=== PATIENT | male | born 2000 | race African-American/Black ===

== ENCOUNTER 2021-05-17 14:37 | Emergency (ER) | payer SELFPAY ==
[~2021-05-17] VITALS: Ht 190.5 cm; Wt 67.0 kg
--- NOTE | 2021-05-17 14:58 | ED Integumentary General ---
General Chief Complaint: Skin/Wound Problems Stated Complaint: RT ARMPIT CYST History of Present Illness Date Seen by Provider: May 17, 2021 Time Seen by Provider: 14:42 Initial Comments 20-year-old male coming in due to a wound on his right axilla that is getting worse over the past 3 weeks. Significantly worse today and now more painful and red. No fever. This occurred as a child and it popped on its own. He did get a little bit of purulent drainage from it with a what he believes was an ingrown hair. Is otherwise denying any other acute complaints. Allergies and Home Medications Allergies Coded Allergies: No Known Drug Allergies (Unverified , 05/17/21) Patient Home Medication List Home Medication List Reviewed: Yes Cephalexin (Cephalexin) 500 Mg Tablet, 500 MG PO QID Prescribed by: AKILAH MEADOWS on 05/17/21 152 Doxycycline Hyclate (Doxycycline Hyclate) 100 Mg Tablet, 100 MG PO BID Prescribed by: AKILAH MEADOWS on 05/17/21 152 Review of Systems Review of Systems Constitutional: No fever EENTM: no symptoms reported Respiratory: no symptoms reported Cardiovascular: no symptoms reported Gastrointestinal: No abdominal pain Genitourinary: no symptoms reported Musculoskeletal: no symptoms reported Skin: rash Psychiatric/Neurological: No Symptoms Reported Endocrine: No Symptoms Reported Hematologic/Lymphatic: No Symptoms Reported All Other Systems Reviewed Negative Unless Noted: Yes Past Aveextf-Lsugtw-[place] Hx Patient Social History Tobacco Use?: Yes Tobacco type used: Cigarettes Past Medical History Surgeries: No Physical Exam Vital Signs Vital Signs - First Documented 05/17/21 14:42 Temp 36.0 Pulse 71 Resp 16 B/P (MAP) 119/75 (90) Pulse Ox 16 O2 Delivery Room Air Capillary Refill : General Appearance: WD/WN, no apparent distress HEENT: PERRL/EOMI, normal ENT inspection, pharynx normal Neck: non-tender, full range of motion, supple, normal inspection Cardiovascular: regular rate, rhythm, no edema, no murmur Respiratory: chest non-tender, lungs clear, normal breath sounds, no respiratory distress, no accessory muscle use Gastrointestinal: normal bowel sounds, non tender, soft; No guarding Back: normal inspection Extremities: normal range of motion, non-tender, normal inspection, no pedal edema, no calf tenderness, normal capillary refill Neurologic/Psychiatric: no motor/sensory deficits, alert, normal mood/affect Skin: normal color, warm/dry, other (Fluctuant area to the right axilla with some induration as well and overlying cellulitis, no pulse felt in the fluctuant area) Lymphatic: no adenopathy Procedures/Interventions I&D : Site: right axilla Blade Size: 11 I & D Procedure: betadine prep Progress Single stab incision to the right axilla after confirmed abscess by ultrasound. Doppler used with no blood vessel around the abscess. Moderate amount of purulent drainage with no bleeding. Lidocaine with epinephrine 1% was used for anesthesia prior to the procedure. He tolerated it well. Progress/Results/Core Measures Results/Orders My Orders Orders - AKILAH MEADOWS MD Lidocaine/Epi 2% 1:100,000 (Xylocaine/Ep (05/17/21 15:00) Medications Given in ED Current Medications Medications Dose Ordered Sig/Erica Route Start Time Stop Time Status Last Admin Dose Admin Lidocaine/ Epinephrine 20 ml ONCE ONCE INJ 05/17/21 15:00 05/17/21 15:01 DC 05/17/21 15:18 20 ML Vital Signs/I&O 05/17/21 05/17/21 14:42 15:25 Temp 36.0 36.0 Pulse 71 71 Resp 16 16 B/P (MAP) 119/75 (90) 119/75 Pulse Ox 16 16 O2 Delivery Room Air Room Air Progress Progress Note : Progress Note 20-year-old male with above history coming in due to an abscess in his right axilla with overlying mild cellulitis. He is not systemically ill. ABCs were intact and vitals were stable on presentation. Overall he is very well- appearing. I did a [id number] ultrasound on the wound showing the abscess. Doppler flow negative for any blood vessels near the infection. Numbed it and did a single stab incision with a moderate amount of purulent drainage. There is still a fair amount of induration and overlying erythema concerning for infection. We will send a prescription to his pharmacy. He was then discharged home in stable condition with strict return precautions Departure Impression Primary Impression: Cellulitis and abscess of upper extremity Disposition: HOME, SELF-CARE Condition: Stable Departure-Patient Inst. Decision time for Depature: 15:22 Referrals: NO,LOCAL PHYSICIAN (PCP/Family) Primary Care Physician Patient Instructions: Abscess Incision and Drainage Add. Discharge Instructions: You are seen in the emergency department for an abscess in your armpit. We did drain this. Keep the area clean and do not use deodorant for the next week in the area. Take antibiotics as well. If you are having pain then take 600 mg of ibuprofen every 6 hours. If you have any fever or worsening of condition within the next day then please come back to the ER. All discharge instructions reviewed with patient and/or family. Voiced understanding. Scripts Cephalexin (Cephalexin) 500 Mg Tablet 500 MG PO QID for 7 Days, #28 TAB Prov: AKILAH MEADOWS MD 05/17/21 Doxycycline Hyclate (Doxycycline Hyclate) 100 Mg Tablet 100 MG PO BID for 7 Days, #14 TAB 0 Refills Prov: AKILAH MEADOWS MD 05/17/21 Work/School Note: Work Release Form Date Seen in the Emergency Department: May 17, 2021 Return to Work: May 18, 2021 Restrictions: No Restrictions AKILAH MEADOWS MD May 17, 2021 14:58
[2021-05-17] MEDS ORDERED: LIDOCAINE/EPI 2% 1:100,00 (XYLOCAINE) 20 ML VIAL INJ ONE (15:00)
[2021-05-17] MEDS ORDERED: CEPH500T PO (15:22)
[2021-05-17] MEDS ORDERED: DOXY100T2 PO (15:22)
[2021-05-17 15:25] VITALS: BP 119/75
== END 2021-05-17 15:24 | disposition home or self-care (01) ==
LOC: ER FS 14:39
DX: L03.111 Cellulitis of right axilla (principal); L02.411 Cutaneous abscess of right axilla; Z72.0 Tobacco use
CPT/HCPCS: 10060

== ENCOUNTER 2021-06-23 11:27 | Emergency (ER) | payer SELFPAY ==
[~2021-06-23] VITALS: Ht 190.5 cm; Wt 66.7 kg
[~2021-06-23 11:27] MED LIST: CEPH500T PO; DOXY100T2 PO
--- NOTE | 2021-06-23 11:37 | ED Integumentary General ---
General Chief Complaint: Skin/Wound Problems Stated Complaint: RT ARMPIT CYST History of Present Illness Date Seen by Provider: Jun 23, 2021 Time Seen by Provider: 11:32 Initial Comments 21-year-old male presents with an abscess/cyst in his right armpit. Patient reports that he was seen here about a month ago where they lanced it. Patient reports that it is gotten worse especially the last week and now he has more than one area of drainage and cyst. Patient denies any fevers or chills. Allergies and Home Medications Allergies Coded Allergies: No Known Drug Allergies (Unverified , 05/17/21) Patient Home Medication List Home Medication List Reviewed: Yes Cephalexin (Cephalexin) 500 Mg Tablet, 500 MG PO QID Prescribed by: AKILAH MEADOWS on 05/17/21 1522 Clindamycin Phosphate (Clindacin Etz) 1 Each Med..swab, 1 EACH TP BID Prescribed by: BALBIR CABA on 06/23/21 1145 Doxycycline Hyclate (Doxycycline Hyclate) 100 Mg Tablet, 100 MG PO BID Prescribed by: AKILAH MEADOWS on 05/17/21 1522 Doxycycline Hyclate (Doxycycline Hyclate) 100 Mg Tablet, 100 MG PO BID Prescribed by: BALBIR CABA on 06/23/21 1145 Review of Systems Review of Systems Constitutional: no symptoms reported EENTM: no symptoms reported Respiratory: no symptoms reported Cardiovascular: no symptoms reported Genitourinary: no symptoms reported Musculoskeletal: no symptoms reported Skin: see HPI Psychiatric/Neurological: No Symptoms Reported Endocrine: No Symptoms Reported Past Jqwrbwj-Oyhqmk-Ucwiwb Hx Past Medical History Surgeries: No Physical Exam Vital Signs Capillary Refill : General Appearance: no apparent distress Cardiovascular: normal peripheral pulses, regular rate, rhythm Respiratory: lungs clear, normal breath sounds Extremities: non-tender, no pedal edema Neurologic/Psychiatric: alert, normal mood/affect, oriented x 3 Skin Problem Location: upper extremities (Right axilla) Skin Problem Character: abscess (Consistent with hidradenitis) Progress/Results/Core Measures Progress Progress Note : Progress Note Patient with large abscess and multiple other small abscess drainage this consistent with hidradenitis. I will prescribe him doxycycline and clindamycin topical. I recommend he follow-up with the general surgery for further management. Patient can use Tylenol ibuprofen and topical lidocaine for pain. Patient stable and discharged Departure Impression Primary Impression: Hidradenitis suppurativa of right axilla Disposition: 01 HOME, SELF-CARE Condition: Stable Departure-Patient Inst. Referrals: WILL MAXWELL,LOCAL PHYSICIAN (PCP) Primary Care Physician Patient Instructions: Hidradenitis Suppurativa Add. Discharge Instructions: Follow-up with general surgery for further outpatient management You may use 4% topical lidocaine with menthol cream or gel as needed for pain in addition to Tylenol and ibuprofen All discharge instructions reviewed with patient and/or family. Voiced understanding. Scripts Clindamycin Phosphate (Clindacin Etz) 1 Each Med..swab 1 EACH TP BID, #60 EA Prov: BALBIR CABA DO 06/23/21 Doxycycline Hyclate (Doxycycline Hyclate) 100 Mg Tablet 100 MG PO BID, #20 TAB 0 Refills Prov: BALBIR CABA DO 06/23/21 BALBIR CABA DO Jun 23, 2021 11:37
[2021-06-23] MEDS ORDERED: DOXY100T2 PO (11:45)
[2021-06-23] MEDS ORDERED: [UNRECOGNIZED DRUG - CODE] TP (11:45)
[2021-06-23 11:51] VITALS: BP 120/84
== END 2021-06-23 11:54 | disposition home or self-care (01) ==
LOC: EDUNIT# 11:27 → ER FS 11:29
DX: L73.2 Hidradenitis suppurativa (principal)
CPT/HCPCS: 99281

== ENCOUNTER 2022-08-13 15:17 | Emergency (ER) | payer SELFPAY ==
[~2022-08-13] VITALS: Ht 190 cm; Wt 72.0 kg
[~2022-08-13 15:17] MED LIST changes: +[UNRECOGNIZED DRUG - CODE] TP
[2022-08-13] MEDS ORDERED: AMOX500C2 PO (15:51)
--- NOTE | 2022-08-13 15:51 | ED EENT ---
History of Present Illness General Chief Complaint: Dental Problems/Pain Stated Complaint: DENTAL PAIN Nursing Triage Note: TO TRIAGE WITH COMPLAINTS OF LEFT SIDED DENTAL PAIN. WAS SCHEDULED TO HAVE TOOTH REMOVED TODAY BUT WENT TO THE WRONG PLACE THEN WAS LATE. History of Present Illness Date Seen by Provider: Aug 13, 2022 Time Seen by Provider: 15:40 Initial Comments 22 year old male presents for left lower molar dental pain. He was scheduled for evaluation at [facility] dental today but was late, so will need to reschedule. Took Ibuprofen [employer]. Does not have family dentist. Location: dental Prearrival Treatment: over the counter meds Associated Symptoms: denies symptoms Allergies and Home Medications Allergies Coded Allergies: No Known Drug Allergies (Unverified , 05/17/21) Patient Home Medication List Home Medication List Reviewed: Yes Amoxicillin (Amoxicillin) 500 Mg Capsule, 500 MG PO TID Prescribed by: SOHA COLÓN on 08/13/22 1551 Discontinued Medications Cephalexin (Cephalexin) 500 Mg Tablet, 500 MG PO QID Discontinued Reason: Referral/FU Appt-Addtl Prescribed by: AKILAH MEADOWS on 05/17/21 152 Last Action: Discontinued Clindamycin Phosphate (Clindacin Etz) 1 Each Med..swab, 1 EACH TP BID Discontinued Reason: Referral/FU Appt-Addtl Prescribed by: BALBIR CABA on 06/23/21 1145 Last Action: Discontinued Doxycycline Hyclate (Doxycycline Hyclate) 100 Mg Tablet, 100 MG PO BID Discontinued Reason: Referral/FU Appt-Addtl Prescribed by: AKILAH MEADOWS on 05/17/21 1522 Last Action: Discontinued Doxycycline Hyclate (Doxycycline Hyclate) 100 Mg Tablet, 100 MG PO BID Discontinued Reason: Referral/FU Appt-Addtl Prescribed by: BALBIR CABA on 06/23/21 1145 Last Action: Discontinued Review of Systems Review of Systems Constitutional: no symptoms reported, see HPI Ears: No Symptoms Reported, See HPI Mouth: see HPI, pain Throat: no symptoms reported, see HPI Respiratory: no symptoms reported, see HPI All Other Systems Reviewed Negative Unless Noted: Yes Past Eywbaxa-Ilgfxu-Iqipoa Hx Patient Social History Tobacco Use?: Yes Use of E-Cig and/or Vaping dev: Yes Substance use?: Yes Substance type: Marijuana Alcohol Use?: Yes Alcohol Frequency: Once in a while Past Medical History Surgery/Hospitalization HX: Right axilla cyst drained on May 17 2021 Surgeries: No Family Medical History Reviewed Nursing Family Hx Physical Exam Vital Signs Vital Signs - First Documented 08/13/22 15:30 Temp 37.0 Pulse 65 Resp 16 B/P (MAP) 148/95 (112) Pulse Ox 98 O2 Delivery Room Air Height, Weight, BMI Height: '" Weight: lbs. oz. kg; 19.00 BMI Method: General Appearance: WD/WN, no apparent distress Ears: bilateral ear auricle normal, bilateral ear canal normal, bilateral ear TM normal Mouth/Throat: pharynx normal, dental tenderness (left lower molar, moderate decay and gingivitis noted. ); No excessive drooling, No mandibular swelling, No maxillary swelling Neck: non-tender, full range of motion, supple, normal inspection; No lymphadenopathy (R), No lymphadenopathy (L) Cardiovascular: normal peripheral pulses, regular rate, rhythm Neurologic/Psychiatric: no motor/sensory deficits, alert, normal mood/affect, oriented x 3 Progress/Results/Core Measures Results/Orders Vital Signs/I&O 08/13/22 15:30 Temp 37.0 Pulse 65 Resp 16 B/P (MAP) 148/95 (112) Pulse Ox 98 O2 Delivery Room Air Blood Pressure Mean: 112 Departure Impression Primary Impression: Dental caries Additional Impression: Dental abscess Disposition: 01 HOME, SELF-CARE Condition: Improved Departure-Patient Inst. Decision time for Depature: 15:40 Referrals: [facility]/VERONICA DEVINE MD (PCP/Family) Primary Care Physician Patient Instructions: Dental Pain (DC) Add. Discharge Instructions: Take antibiotic as prescribed. Alternate between Tylenol 650 mg and ibuprofen 800 mg every 4 hours for pain. Use [id number] dental pain ointments, apply to area of tenderness. Follow-up with [facility] dental for appointment. Establish care with [facility] primary care or walk-in for possible referral to dental care. Return to the emergency department for new, urgent healthcare needs. All discharge instructions reviewed with patient and/or family. Voiced understanding. Scripts Amoxicillin (Amoxicillin) 500 Mg Capsule 500 MG PO TID, #21 CAP 0 Refills Prov: SOHA COLÓN 08/13/22 SOHA COLÓN Aug 13, 2022 15:51
[2022-08-13 16:04] VITALS: BP 148/95
== END 2022-08-13 16:05 | disposition home or self-care (01) ==
LOC: EDUNIT# 15:17 → ER 15:18
DX: K02.9 Dental caries, unspecified (principal); K04.7 Periapical abscess without sinus; F17.290 Nicotine dependence, other tobacco product, uncomplicated; Z28.310 Unvaccinated for COVID-19
CPT/HCPCS: 99282